=== PATIENT | male | born 1985 | race Hispanic/Latino ===

== ENCOUNTER 2017-03-22 22:47 | Emergency (ER) | payer OTHER ==
[2017-03-22 22:58] VITALS: BP 150/96; PULSE 105; RESP 16; TEMP 98; O2SAT 100
--- NOTE | 2017-03-22 23:31 | ED PDOC ---
HPI: General Adult Time Seen by Provider: 03/22/17 23:10 Chief Complaint (Nursing): Fever Chief Complaint (Provider): rash History Per: Patient Additional Complaint(s): 31-year-old male presents to emergency department with a painful rash to bilateral axillary regions that he first noticed on Monday after getting out of a hot tub. Patient states the hot tub was not coordinated and was filthy. Since then he has noticed increasing pain and rash under arms as well as subjective fever. Patient measured temperature at home and the highest temperature recorded was 99. Patient has not been taking any antipyretics. No associated nausea or vomiting. Patient denies any URI symptoms. PMD: Dr. Estrella Past Medical History Reviewed: Historical Data, Nursing Documentation, Vital Signs Vital Signs: Last Vital Signs Temp 98.0 F 03/22/17 22:55 Pulse 105 H 03/22/17 22:55 Resp 16 03/22/17 22:55 BP 150/96 H 03/22/17 22:55 Pulse Ox 100 03/22/17 23:33 - Medical History PMH: Anxiety, Depression - Surgical History Surgical History: Tonsillectomy - Family History Family History: States: No Known Family Hx - Social History Current smoker - smoking cessation education provided: No Alcohol: Social Drugs: Cannabis - Home Medications Home Medications: Ambulatory Orders Medication Instructions Recorded Ciprofloxacin [Cipro] 500 mg PO BID #14 tab 03/22/17 Clindamycin [Cleocin] 300 mg PO TID #21 cap 03/22/17 Ibuprofen [Motrin] 600 mg PO Q6 PRN #15 tab 03/22/17 - Allergies Allergies/Adverse Reactions: Allergies Allergy/AdvReac Type Severity Reaction Status Date / Time cefaclor [From [facility]] Allergy RASH Verified 03/22/17 22:55 Review of Systems ROS Statement: Except As Marked, All Systems Reviewed And Found Negative Constitutional: Positive for: Fever (subjective, measured at home at 99). Negative for: Chills Cardiovascular: Negative for: Chest Pain Respiratory: Negative for: Cough Gastrointestinal: Negative for: Nausea, Vomiting Skin: Positive for: Rash Neurological: Negative for: Headache, Dizziness Physical Exam - Reviewed Nursing Documentation Reviewed: Yes Vital Signs Reviewed: Yes - Physical Exam Appears: Positive for: Well, Non-toxic, No Acute Distress Skin: Positive for: Rash (Multiple superficial erythematous lesions noted to bilateral axillary regions and upper extremities consistent with folliculitis, no active drainage or bleeding, no diffuse cellulitis) Cardiovascular/Chest: Positive for: Regular Rate, Rhythm Respiratory: Positive for: Normal Breath Sounds. Negative for: Respiratory Distress Extremity: Positive for: Normal ROM Neurologic/Psych: Positive for: Alert, Oriented - ECG O2 Sat by Pulse Oximetry: 100 Pulse Ox Interpretation: Normal Medical Decision Making Medical Decision Making: Impression: Folliculitis Patient is afebrile, well appearing, non-toxic appearing. Plan: PO motrin Initial doses of clindamycin and cipro Prescriptions given for Motrin, clindamycin and Cipro. Patient was instructed to keep area clean and dry and to take medicines as directed. Patient was instructed to return any time if acutely worse, otherwise to follow up with primary doctor in 2-3 days. Disposition - Clinical Impression Clinical Impression: Folliculitis - Patient ED Disposition Is Patient to be Admitted: No Counseled Patient/Family Regarding: Diagnosis, Need For Followup, Rx Given - Disposition Referrals: Zack Estrella MD [Staff Provider] - Disposition: Routine/Home Disposition Time: 23:32 Condition: STABLE Additional Instructions: Prescription meds as directed. Drink plenty of fluids and get plenty of rest. Return to emergency department any time if acutely worse, otherwise follow up with primary doctor in 2-3 days. Prescriptions: Ciprofloxacin [Cipro] 500 mg PO BID #14 tab Clindamycin [Cleocin] 300 mg PO TID #21 cap Ibuprofen [Motrin] 600 mg PO Q6 PRN #15 tab PRN Reason: Pain, Moderate (4-7) Instructions: Folliculitis (ED) Forms: [employer] (Macedonian)
== END 2017-03-22 23:51 | disposition home or self-care (01) ==
LOC: H.ER 22:47
DX: L73.9 Follicular disorder, unspecified (principal); F32.9 Major depressive disorder, single episode, unspecified; F41.9 Anxiety disorder, unspecified